=== PATIENT | male | born 1945 | race Caucasian/White ===

== ENCOUNTER 2019-03-06 16:21 | Emergency (ER) | payer MEDICARE ==
[~2019-03-06] VITALS: Ht 180.3 cm; Wt 99.8 kg
[2019-03-06 16:28] VITALS: BP 147/65
[2019-03-06] MEDS ORDERED: AZITHROMYCIN 2250 MG PO (16:42)
[2019-03-06] MEDS ORDERED: MEDROL DOSPAK21 TA1 PO (16:42)
== END 2019-03-06 16:53 ==
LOC: M.ERS 16:21
DX: J40 Bronchitis, not specified as acute or chronic (principal); I10 Essential (primary) hypertension; E78.5 Hyperlipidemia, unspecified; F32.9 Major depressive disorder, single episode, unspecified; F41.9 Anxiety disorder, unspecified; F17.200 Nicotine dependence, unspecified, uncomplicated

== ENCOUNTER 2019-08-30 13:50 | Emergency (ER) | payer OTHER ==
[~2019-08-30] VITALS: Ht 170.2 cm; Wt 88.5 kg
[~2019-08-30 13:50] MED LIST: AZITHROMYCIN 2250 MG PO; MEDROL DOSPAK21 TA1 PO
[2019-08-30 13:57] VITALS: BP 140/70
[2019-08-30] MEDS ORDERED: ZPAK PO (14:13)
[2019-08-30] MEDS ORDERED: PREDNISONE 20 M20 M1 PO (14:13)
== END 2019-08-30 14:22 | disposition home or self-care (01) ==
LOC: M.ERS 13:50
DX: J40 Bronchitis, not specified as acute or chronic (principal); I10 Essential (primary) hypertension; E78.5 Hyperlipidemia, unspecified; F32.9 Major depressive disorder, single episode, unspecified; F41.9 Anxiety disorder, unspecified; Z91.041 Radiographic dye allergy status; Z98.890 Other specified postprocedural states

== ENCOUNTER 2019-09-25 08:15 | Emergency (ER) | payer OTHER ==
[~2019-09-25] VITALS: Ht 180.3 cm; Wt 102.5 kg
[~2019-09-25 08:15] MED LIST changes: +PREDNISONE 20 M20 M1 PO; +ZPAK PO
[2019-09-25] MEDS ORDERED: PENICILLIN V P500 MG PO (08:24)
[2019-09-25] MEDS ORDERED: PERCOCET 5-3251 EACH PO (08:25)
[2019-09-25] MEDS ORDERED: BLOOD PRESSURE MED (08:25)
[2019-09-25] MEDS ORDERED: CLEOCIN HCL150 MG PO (08:36)
[2019-09-25 10:10] VITALS: BP 165/75
== END 2019-09-25 10:11 | disposition home or self-care (01) ==
LOC: M.ERS 08:15
DX: K04.7 Periapical abscess without sinus (principal); I10 Essential (primary) hypertension; E78.5 Hyperlipidemia, unspecified; F32.9 Major depressive disorder, single episode, unspecified; F41.9 Anxiety disorder, unspecified; F17.210 Nicotine dependence, cigarettes, uncomplicated; Z98.890 Other specified postprocedural states; Z91.041 Radiographic dye allergy status

== ENCOUNTER → 2019-12-22 | Outpatient (CLI) | payer OTHER ==
[~2019-12-22] MED LIST changes: +BLOOD PRESSURE MED; +CLEOCIN HCL150 MG PO; +PENICILLIN V P500 MG PO; +PERCOCET 5-3251 EACH PO
== END ==
LOC: M.RAD 13:34
DX: N63.20 Unspecified lump in the left breast, unspecified quadrant (principal); N63.10 Unspecified lump in the right breast, unspecified quadrant

== ENCOUNTER → 2021-07-05 | Emergency (ER) | payer OTHER, MEDICARE ==
[~2021-07-05] VITALS: Ht 180.3 cm; Wt 104.3 kg
[~2021-07-05] MED LIST changes: +EPIPEN 2-P0.3 MG/0.3 IM; +PEPCID20 MG PO; +PREDNISONE 20 M20 MG PO
[2021-07-05 17:12] LABS: ABSOLUTE BASOPHILS 0.1 thou/uL (0.0-0.2); ABSOLUTE EOSINOPHILS 0.2 thou/uL (0.0-0.7); ABSOLUTE LYMPHOCYTES 1.1 thou/uL (0.8-5.3); ABSOLUTE MONOCYTES 0.6 thou/uL (0.0-1.2); ABSOLUTE NEUTROPHILS 6.6 thou/uL (1.6-8.1); HEMATOCRIT 41.2 % (42.0-52.0); HEMOGLOBIN 14.8 gm/dL (14.0-18.0); LYMPHOCYTES 12.4 %; MCH 36.7 pg (26.0-34.0); MCHC 35.9 g/dL (28.0-37.0); MCV 102.3 fL (80.0-100.0); MONOCYTES 7.1 %; MPV 6.7 fl. (7.2-11.1); NUCLEATED RBCS 0 /100WBC; PLATELET COUNT* 238 thou/uL (150-400); POLYS 77.5 %; RBC 4.03 mil/uL (4.50-6.00); RDW-CV 14.6 % (10.5-14.5); WBC 8.5 thou/uL (4.0-11.0)
[2021-07-05 17:22] LABS: CALCIUM 9.1 mg/dL (8.5-10.1); CREATININE 1.5 mg/dL (0.6-1.3); POTASSIUM 3.4 mmol/L (3.5-5.1)
[2021-07-05 17:26] LABS: ALBUMIN 4.1 g/dL (3.4-5.0); TOTAL BILIRUBIN 0.9 mg/dL (<0.1-1.0); TOTAL PROTEIN 8.1 g/dL (6.4-8.2)
[2021-07-05 18:00] VITALS: BP 137/55
--- NOTE | 2021-07-06 11:50 | EKG ---
[place] [address] ELECTROCARDIOGRAM REPORT Name: WILFREDO VILLALTA Room: [facility]#: [id number] Admission: 07/05/21 Attend Phys: Discharge: Date of : 47 Date of Service: 07/05/211701 Report #: [id number] THIS REPORT FOR: //name// [facility] ED Test Date: 2021-07-05 Test Time: 17:02:53 Pat Name: WILFREDO VILLALTA Department: Room: Gender: Faculty Research Physician: SIRENA : [id number] Requested By: Lei Vasquez Order Number: [id number] MD: Mikhail García Measurements Intervals [place] Rate: 73 P: 1 CO: 160 QRS: -28 QRSD: 103 T: 56 QT: 405 QTc: 447 Interpretive Statements Sinus rhythm Borderline left axis deviation No previous ECG available for comparison Electronically Signed On 07-06-2021 11:50:48 CDT by Mikhail García [email or web address] <ELECTRONICALLY SIGNED> By: Vickie García MD, [facility] 07/06/21 115 01 01 Vickie García MD, [facility] /EPI
== END ==
LOC: M.ERS 16:17
PROVIDERS: Physician Assistant
DX: R60.0 Localized edema (principal); I10 Essential (primary) hypertension; E78.5 Hyperlipidemia, unspecified; F32.9 Major depressive disorder, single episode, unspecified; F41.9 Anxiety disorder, unspecified; E78.00 Pure hypercholesterolemia, unspecified; F17.210 Nicotine dependence, cigarettes, uncomplicated; Z90.89 Acquired absence of other organs; Z79.899 Other long term (current) drug therapy; Z91.041 Radiographic dye allergy status